=== PATIENT | female | born 2000 | race Caucasian/White ===

== ENCOUNTER → 2018-06-30 | Outpatient (CLI) | payer OTHER | END | disposition home or self-care (01) | LOC: LABWHC1 14:21 | PROVIDERS: ATTEND Dermatology Procedural Dermatology | DX: L70.0 Acne vulgaris (principal) | CPT/HCPCS: 36415; 84702 ==

== ENCOUNTER → 2019-02-08 | Outpatient (CLI) | payer OTHER ==
[2019-02-08 16:45] LABS: Mumps Virus IgG Ab Interp POSITIVE (NEGATIVE); Mumps Virus IgG Antibody 1.1 AI
[2019-02-08 18:22] LABS: Hepatitis B Surface AB- Quant 3.5 mIU/mL; Hepatitis B Surface Antibody Non-Reactive (Non-Reactive)
== END | disposition home or self-care (01) ==
LOC: LABWHC1 10:04
PROVIDERS: ATTEND Family Medicine
DX: Z01.84 Encounter for antibody response examination (principal)
CPT/HCPCS: 36415; 86706; 86735; 86762; 86765; 86787

== ENCOUNTER → 2020-03-05 | Outpatient (CLI) | payer OTHER | END | disposition home or self-care (01) | LOC: LABWHC1 13:11 | PROVIDERS: ATTEND Family Medicine | DX: U07.1 COVID-19 (principal) | CPT/HCPCS: U0003; C9803; U0005 ==